=== PATIENT | male | born 1955 | race Caucasian/White ===

== ENCOUNTER 2024-01-09 07:37 | Outpatient (CLI) | payer MEDICARE, OTHER ==
[2024-01-09] MEDS ORDERED: iohexol 300mg/ml 100ml inj. ONE ×2 (08:12→10:21)
[2024-01-09 08:15] LABS: ANION GAP 6 (8-16); BLOOD UREA NITROGEN 11 MG/DL (7-18); BUN/CREATININE RATIO 9.6 (10.0-20.0); CALCIUM 8.6 MG/DL (8.5-10.1); CHLORIDE 108 MMOL/L (99-107); CREATININE 1.15 MG/DL (0.60-1.10); GLUCOSE 113 MG/DL (70-104); POTASSIUM 4.5 MMOL/L (3.5-5.1); SODIUM 145 MMOL/L (135-145); TOTAL CARBON DIOXIDE 31.1 MMOL/L (24-32); eGFR 63 ML/MIN
== END 2024-01-09 23:59 | disposition home or self-care (01) ==
LOC: RAD 07:37
PROVIDERS: ATTEND Student in an Organized Health Care Education/Training Program
DX: Z01.818 Encounter for other preprocedural examination (principal); R31.0 Gross hematuria; K76.89 Other specified diseases of liver; R16.0 Hepatomegaly, not elsewhere classified; N32.89 Other specified disorders of bladder; N40.0 Benign prostatic hyperplasia without lower urinary tract symptoms; I70.0 Atherosclerosis of aorta
CPT/HCPCS: 36415; 74178; 80048; J3490; Q9967